=== PATIENT | male | born 1995 | race Two or more races ===

== ENCOUNTER 2017-01-25 04:57 | Emergency (ER) | payer MEDICAID ==
[~2017-01-25] VITALS: Ht 175.3 cm; Wt 61.2 kg
[2017-01-25 05:58] VITALS: BP 112/91
[2017-01-25] MEDS ORDERED: LIDOCAINE 2%HCL (LOCAL ANESTH.) INJ 20ML MDV ONE (06:26)
[2017-01-25] MEDS ORDERED: LIDOCAINE 1% HCL (LOCAL ANESTH.) INJ 20ML MDV IN ONE (06:30)
[2017-01-25] MEDS ORDERED: LIDOCAINE 2%HCL (LOCAL ANESTH.) INJ 20ML MDV IJ ONE (06:45)
== END 2017-01-25 07:06 | disposition home or self-care (01) ==
LOC: ER 04:59
DX: S01.81XA Laceration without foreign body of other part of head, initial encounter (principal); F17.210 Nicotine dependence, cigarettes, uncomplicated; F12.10 Cannabis abuse, uncomplicated; W22.8XXA Striking against or struck by other objects, initial encounter; Y93.89 Activity, other specified; Y99.8 Other external cause status; Y92.89 Other specified places as the place of occurrence of the external cause
CPT/HCPCS: 12013